=== PATIENT | female | born 1990 | race Caucasian/White ===

== ENCOUNTER 2016-12-03 23:12 | Emergency (ER) | payer BC ==
[2016-12-03 23:38] LABS: URINE APPEARANCE SL CLOUDY; URINE BILIRUBIN NEGATIVE (NEGATIVE); URINE BLOOD MODERATE (NEGATIVE); URINE COLOR ORANGE; URINE GLUCOSE (UA) NEGATIVE (NEGATIVE); URINE KETONE NEGATIVE (NEGATIVE); URINE LEUKOCYTE ESTERASE LARGE (NEGATIVE); URINE NITRITE POSITIVE (NEGATIVE)
[2016-12-03 23:41] LABS: HCG,QUALITATIVE URINE NEGATIVE (NEGATIVE)
[2016-12-03] MEDS ORDERED: CIPROFLOXACIN HCL 500 MG TABLET PO ONE (23:41)
[2016-12-03 23:45] LABS: URINE BACTERIA FEW; URINE WBC 16 - 20 (0-2/hpf)
--- NOTE | 2016-12-03 23:46 | Emergency Department Record ---
History of Present Illness - General Chief complaint: Female Urogenital Problem Stated complaint: URINARY PROBLEMS/BACK PAIN Time Seen by Provider: 12/03/16 23:37 Source: Patient Mode of Arrival: Ambulatory Limitations: No limitations - History of Present Illness Initial comments: pt has a uti. she has freq, urg, dysuria, tired, flank pain. she has a hx of interstitial cystitis. MD Complaint: Dysuria Onset/Timin -: Days(s) Location: Suprapubic, RLQ Radiation: R flank Severity scale (1-10): 5 Quality: Sharp, Stabbing Consistency: Constant Improves with: Medication Worsens with: None Associated Symptoms: Denies other symptoms - Related Data Home Medications Medication Instructions Recorded Confirmed Last Taken Pentosan Polysulfate Sodium 100 mg PO TID cap 05/28/16 12/03/16 12/02/16 [[place]] Duloxetine HCl [Cymbalta] 30 mg PO DAILY 12/03/16 12/03/16 12/03/16 Previous Rx's Medication Instructions Recorded Ciprofloxacin HCl [Cipro] 500 mg PO Q12HR #14 tablet 12/03/16 Allergies Allergy/AdvReac Type Severity Reaction Status Date / Time Sulfa (Sulfonamide Allergy Mild RASH Verified 12/03/16 23:18 Antibiotics) Travel Screening - Travel/Exposure Within Last 30 Days Have you traveled within the last 30 days?: No - Travel/Exposure Within Last Year Have you traveled outside the [place] in the last year?: No - Additonal Travel Details Have you been exposed to anyone with a communicable illness?: No - Travel Symptoms Symptom Screening: None Review of Systems Reviewed: No additional complaints except as noted below Constitutional: Reports: As per HPI. Denies: Chills, Fever, Malaise, Night sweats, Weakness, Weight change Eyes: Reports: As per HPI. Denies: Eye discharge, Eye pain, Photophobia, Vision change ENT: Reports: As per HPI. Denies: Congestion, Dental pain, Ear pain, Epistaxis , Hearing loss, Throat pain Respiratory: Reports: As per HPI. Denies: Cough, Dyspnea, Hemoptysis, Stridor, Wheezes Cardiovascular: Reports: As per HPI. Denies: Arrhythmia, Chest pain, Dyspnea on exertion, Edema, Murmurs, Orthopnea, Palpitations, Paroxysmal nocturnal dyspnea, Rheumatic Fever, Syncope Endocrine: Reports: As per HPI. Denies: Fatigue, Heat or cold intolerance, Polydipsia, Polyuria Gastrointestinal: Reports: As per HPI. Denies: Abdominal pain, Constipation, Diarrhea, Hematemesis, Hematochezia, Melena, Nausea, Vomiting Genitourinary: Reports: As per HPI. Denies: Abnormal menses, Discharge, Dyspareunia, Dysuria, Frequency, Hematuria, Incontinence, Retention, Urgency Musculoskeletal: Reports: As per HPI. Denies: Arthralgia, Back pain, Gout, Joint swelling, Myalgia, Neck pain Skin: Reports: As per HPI. Denies: Bruising, Change in color, Change in hair/ nails, Lesions, Pruritus, Rash Neurological: Reports: As per HPI. Denies: Abnormal gait, Confusion, Headache, Numbness, Paresthesias, Seizure, Tingling, Tremors, Vertigo, Weakness Psychiatric: Reports: As per HPI. Denies: Anxiety, Auditory hallucinations, Depression, Homicidal thoughts, Suicidal thoughts, Visual hallucinations Hematological/Lymphatic: Reports: As per HPI. Denies: Anemia, Blood Clots, Easy bleeding, Easy bruising, Swollen glands Past Medical History - SOCIAL HISTORY Smoking Status: Never smoker Alcohol Use: Rare Drug Use: None - RESPIRATORY Hx Respiratory Disorders: No - CARDIOVASCULAR Hx Cardio Disorders: No - NEURO Hx Neuro Disorders: No - GI Hx GI Disorders: No - Hx Genitourinary Disorders: Yes Hx Bladder Problem: Yes Comment:: interstitial cystitis - ENDOCRINE Hx Endocrine Disorders: No - MUSCULOSKELETAL Hx Musculoskeletal Disorders: No - PSYCH Hx Psych Problems: No - HEMATOLOGY/ONCOLOGY Hx Hematology/Oncology Disorders: No Family Medical History Any Significant Family History?: No Physical Exam - General General Appearance: Alert, Oriented x3, Cooperative, Mild distress - Head Head exam: Normal inspection - Eye Eye exam: Normal appearance, PERRL, EOMI Pupils: Normal accommodation - ENT ENT exam: Normal exam, Mucous membranes moist, Normal external ear exam, Normal orophraynx Ear exam: Normal external inspection. negative: External canal tenderness Nasal Exam: Normal inspection. negative: Discharge, Sinus tenderness Mouth exam: Normal external inspection, Tongue normal Teeth exam: Normal inspection. negative: Dental caries Throat exam: Normal inspection. negative: Tonsillar erythema, Tonsillar exudate - Neck Neck exam: Normal inspection, Full ROM. negative: Tenderness - Respiratory Respiratory exam: Normal lung sounds bilaterally. negative: Respiratory distress - Cardiovascular Cardiovascular Exam: Regular rate, Normal rhythm, Normal heart sounds - GI/Abdominal GI/Abdominal exam: Soft, Normal bowel sounds, Tenderness - Rectal Rectal exam: Deferred - exam: Deferred - Extremities Extremities exam: Normal inspection, Full ROM, Normal capillary refill. negative: Tenderness - Back Back exam: Reports: Normal inspection, Full ROM. Denies: Muscle spasm, Rash noted, Tenderness - Neurological Neurological exam: Alert, CN II-XII intact, Normal gait, Oriented X3 - Psychiatric Psychiatric exam: Normal affect, Normal mood - Skin Skin exam: Dry, Intact, Normal color, Warm Course Vital Signs 12/03/16 23:20 Temperature 98.1 F Pulse Rate 74 Respiratory 16 Rate Blood Pressure 127/88 Pulse Ox 100 - Reevaluation(s) Reevaluation #1: 12/03/16 23:45 pt states cipro works best for her Medical Decision Making - Lab Data Lab Results 12/03/16 Range/Units 23:[address] [place] H Urine Appearance Sl cloudy Urine pH 6.0 (5.0-8.0) Ur Specific [place] <= 1.005 (1.002-1.030) Urine Protein 30 mg/dl H (NEGATIVE) Urine Glucose (UA) Negative (NEGATIVE) Urine Ketones Negative (NEGATIVE) Urine Blood Moderate (NEGATIVE) Urine Nitrite Positive H (NEGATIVE) Urine Bilirubin Negative (NEGATIVE) Urine Urobilinogen 1.0 (0.20 - 1.00) E.U./dL Ur Leukocyte Esterase Large H (NEGATIVE) Disposition Disposition: Discharge Clinical Impression: UTI (urinary tract infection) Qualifiers: Urinary tract infection type: acute cystitis Hematuria presence: with hematuria Qualified Code(s): N30.01 - Acute cystitis with hematuria Disposition: Home, Self-Care Condition: (1) Good Instructions: Urinary Tract Infection in Women (ED), Interstitial Cystitis (ED) Additional Instructions: follow up with family doctor. return sooner if worse. if right lower bdomen increases be rechecked Prescriptions: Ciprofloxacin HCl [Cipro] 500 mg PO Q12HR #14 tablet Forms: Patient Portal Access
== END 2016-12-03 23:55 | disposition home or self-care (01) ==
LOC: ER 23:12
DX: N30.01 Acute cystitis with hematuria (principal); R10.31 Right lower quadrant pain
CPT/HCPCS: 81001; 81025; 99282